=== PATIENT | male | born 1970 | race Caucasian/White ===

== ENCOUNTER 2021-07-04 15:22 | Emergency (ER) | payer BC ==
--- NOTE | 2021-07-04 16:21 | EDM.PDOC ---
ED HPI GENERAL MEDICAL PROBLEM - General Chief Complaint: Respiratory Problem Stated Complaint: COVID SX SENT BY CLINIC Time Seen by Provider: 07/04/21 15:58 Source of Information: Reports: Patient, Old Records (Records from [facility] visit today with Antonia Maynard), RN Notes Reviewed History Limitations: Reports: No Limitations - History of Present Illness INITIAL COMMENTS - FREE TEXT/NARRATIVE: Patient is a 51-year-old male who presents to the ER for evaluation of [id number] symptoms. He was evaluated in the walk-in clinic by Antonia Maynard earlier today, he had some labs taken, CBC was unremarkable, CMP is unremarkable, D-dimer was slightly elevated at 0.97 and his rapid Covid screen was negative at the clinic. Chest x-ray also demonstrated no sign of Covid pneumonia. He is not hypoxic. The patient states that for the last week or so, he has had fatigue, body aches, and just generally not feeling well. He has not been around anyone that is been known to be sick. He has not had COVID-19 in the past, nor did he get the vaccination. Patient states that roughly 3 weeks ago, he had a pretty extensive injury to his leg, where it bruised quite a bit after striking it on the 4 helm. This has since resolved. Antonia Maynard was concerned about a false negative test for COVID-19 so she sent him here for retesting and a CTA to evaluate for PE. Patient's not had any worsening fever, or worsening symptoms. States that he just does not feel great. He was also tested for Lyme disease and West Nile disease through the [facility], these tests are still pending. Middle Chest Pain Score (Numeric/FACES): 1 - Related Data Allergies Allergy/AdvReac Type Severity Reaction Status Date / Time Penicillins Allergy Severe Rash Verified 07/04/21 16:01 Home Meds: Home Meds . [No Known Home Meds] 07/04/21 [History] Past Medical History - Past Health History Medical/Surgical History: Denies Medical/Surgical History - Infectious Disease History Infectious Disease History: Reports: Chicken Pox, Measles, Mumps ED ROS GENERAL - Review of Systems Review Of Systems: Comprehensive ROS is negative, except as noted in HPI. ED EXAM, GENERAL - Physical Exam Exam: See Below Exam Limited By: No Limitations General Appearance: Alert, WD/WN, No Apparent Distress Respiratory/Chest: No Respiratory Distress, Lungs Clear, Normal Breath Sounds, No Accessory Muscle Use, Chest Non-Tender Cardiovascular: Normal Peripheral Pulses, Regular Rate, Rhythm, No Edema Peripheral Pulses: 2+: Radial (L), Radial (R) Extremities: Normal Inspection, Normal Capillary Refill Neurological: Alert, Oriented, Normal Cognition, No Motor/Sensory Deficits Psychiatric: Normal Affect, Normal Mood Skin Exam: Warm, Dry, Intact, Normal Color, No Rash Course - Vital Signs Last Recorded V/S: Last Vital Signs Temp 96.4 F L 07/04/21 15:55 Pulse 64 07/04/21 15:55 Resp 20 07/04/21 15:55 BP 121/86 07/04/21 15:55 Pulse Ox 98 07/04/21 15:55 - Orders/Labs/Meds Orders: Active Orders 24 hr Category Date Time Status Peripheral IV Care [RC] . DIRECTED Care 07/04/21 16:14 Ordered Ang Chest [CT] Stat Exams 07/04/21 15:59 Ordered Sodium Chloride 0.9% [Normal Saline] 100 ml Med 07/04/21 17:45 Active IV ASDIRECTED Sodium Chloride 0.9% [Saline Flush] Med 07/04/21 16:14 Ordered 10 ml FLUSH ASDIRECTED PRN Peripheral IV Insertion Adult [OM.PC] Routine Oth 07/04/21 16:14 Ordered Medication Orders Sodium Chloride (Normal Saline) 100 mls @ 60 mls/hr IV ASDIRECTED MILE Last Admin: 07/04/21 17:43 Dose: 60 mls/hr Documented by: Sodium Chloride (Sodium Chloride 0.9% 10 Ml Syringe) 10 ml FLUSH ASDIRECTED PRN PRN Reason: Keep Vein Open Last Admin: 07/04/21 17:14 Dose: 10 ml Documented by: [facility] Labs: Laboratory Tests 07/04/21 Range/Units 16:22 Influenza Type A RNA Negative (NEGATIVE) Influenza Type B RNA Negative (NEGATIVE) SARS-CoV-2 RNA (SAUD) Negative (NEGATIVE) Meds: Medications Generic Name Dose Route Start Last Admin Trade Name Freq PRN Reason Stop Dose Admin Sodium Chloride 100 mls @ 60 mls/hr 07/04/21 17:45 07/04/21 17:43 Normal Saline IV 60 mls/hr ASDIRECTED MILE Administration Sodium Chloride 10 ml 07/04/21 16:14 07/04/21 17:42 Sodium Chloride 0.9% 10 Ml Syringe FLUSH 10 ml ASDIRECTED PRN Administration Keep Vein Open Discontinued Medications Generic Name Dose Route Start Last Admin Trade Name Andrew PRN Reason Stop Dose Admin Iopamidol 100 ml 07/04/21 17:39 07/04/21 17:42 Iopamidol 755 Mg/Ml 100 Ml Bottle IVPUSH 07/04/21 17:40 100 ml ONETIME ONE Administration Sodium Chloride 10 ml 07/04/21 17:39 07/04/21 17:53 Sodium Chloride 0.9% 10 Ml Sdv FLUSH 07/04/21 17:40 10 ml ONETIME ONE Administration - Re-Assessments/Exams Free Text/Narrative Re-Assessment/Exam: 07/04/21 16:19 Patient presents to the ER for the evaluation of his [id number] symptoms. Review of his laboratory evaluation through [facility] demonstrates no focal abnormalities, chest x-ray was also read as no acute focal abnormalities. His D-dimer was a little elevated at 0.97, so a CTA will be performed at today's visit, we will also repeat a COVID-19 screen for ongoing management. 07/04/21 17:15 The patient's repeat Covid screen was negative for today's visit. CTA is still pending at this time. 07/04/21 18:09 CT demonstrates no sign of an acute pulmonary embolus at today's visit. We will go ahead and discharge patient home with general recommendations, likely he is suffering from a viral respiratory illness that should get better in time. Departure - Departure Time of Disposition: 18:10 Disposition: Home, Self-Care 01 Condition: Good Clinical Impression: Viral upper respiratory illness, Elevated d-dimer - Discharge Information *PRESCRIPTION DRUG MONITORING PROGRAM REVIEWED*: No *COPY OF PRESCRIPTION DRUG MONITORING REPORT IN PATIENT LEEANNE: No Instructions: Viral Respiratory Infection, [id number] Referrals: Antonia Maynard NP [Primary Care Provider] - Forms: ED Department Discharge Additional Instructions: You have been evaluated in the ED today for your cold like symptoms. This is likely a viral illness in etiology. Your chest x-ray done at the [place] walk-in clinic showed no sign of pneumonia or other worrisome symptoms. Work-up in the ER today consisted of a repeat Covid swab, and a CT of your chest to rule out pulmonary embolism, and everything was negative or unremarkable. The D-dimer test can be elevated if you have some rather large bruising at times, or if it is resolving. This is a very nonspecific test for any sort of clotting breakdown in the blood. It is likely that the D-dimer was elevated due to the leg trauma you had a few weeks ago. Please increase your fluid intake. Get plenty of rest as well. You should feel better in a few days. As with any illness, please try to limit your exposure to others to help mitigate the spread of germs. Please also remember to wash your hands after you cough/sneeze. Please try to limit touching your face, and then touching other surfaces. Recommend that you take some [id number] nasal decongestants, cough/cold remedies to combat this. You may take 500mg Tylenol (acetaminophen) or 600mg Advil/Motrin (ibuprofen) every 6 hours as needed for further pain/fever relief. Do not exceed 4000 mg Tylenol or 3200 mg ibuprofen in a 24-hour time span. If you have high blood pressure, medications like Coricidin would be adequate to use. If your symptoms are not better in one week's time recommend that you follow up in a clinic or your primary care provider. Our [facility] clinic number is [phone], the [place] clinic is [phone]. Any family practice provider would be able to provide you with the services. Please return to the ED if your symptoms change or worsen. Sepsis Event Note (ED) - Focused Exam Vital Signs: Vital Signs Temp Pulse Resp BP Pulse Ox 07/04/21 15:55 96.4 F L 64 20 121/86 98 - My Orders Last 24 Hours: My Active Orders 07/04/21 15:59 Ang Chest [CT] Stat 07/04/21 16:14 Peripheral IV Care [RC] . DIRECTED Sodium Chloride 0.9% [Saline Flush] 10 ml FLUSH ASDIRECTED PRN Peripheral IV Insertion Adult [OM.PC] Routine 07/04/21 17:45 Sodium Chloride 0.9% [Normal Saline] 100 ml IV ASDIRECTED - Assessment/Plan Last 24 Hours: My Active Orders 07/04/21 15:59 Ang Chest [CT] Stat 07/04/21 16:14 Peripheral IV Care [RC] . DIRECTED Sodium Chloride 0.9% [Saline Flush] 10 ml FLUSH ASDIRECTED PRN Peripheral IV Insertion Adult [OM.PC] Routine 07/04/21 17:45 Sodium Chloride 0.9% [Normal Saline] 100 ml IV ASDIRECTED
[2021-07-04 17:06] LABS: CORONAVIRUS COVID-19 NAA NEGATIVE (NEGATIVE)
[2021-07-04] MEDS: Sodium Chloride 0.9% 10 ML Syringe FLUSH PRN ×2 (17:14→17:42)
[2021-07-04] MEDS ORDERED: Sodium Chloride 0.9% 10 ML SDV FLUSH ONE (17:39)
[2021-07-04] MEDS ORDERED: Iopamidol 755 Mg/ML 100 ML Bottle IVPUSH ONE (17:39)
[2021-07-04] MEDS ORDERED: Sodium Chloride 0.9% 100 ML IV SCH (17:45)
--- NOTE | 2021-07-05 09:28 | CT ---
CT chest Technique: Multiple axial sections through the chest were obtained. Intravenous contrast was utilized. Study has been performed as a pulmonary angiogram protocol. Comparison: No prior chest imaging is available. Findings: Pulmonary arteries are well opacified. No filling defects are seen to indicate pulmonary embolism. Thoracic aorta shows no aneurysm. Small lymph nodes are seen within the mediastinum which are felt to be within normal limits. No axillary adenopathy is seen. No pericardial thickening is seen. Visualized upper abdominal structures show nothing acute. Minimal thickening is seen within several bronchioles within the right middle lobe raising the possibility of minimal bronchitis. Lungs otherwise are clear. No pneumonia is seen. Bone window settings were reviewed. Mild degenerative change is seen within the lower thoracic spine. No acute osseous abnormality is appreciated. Impression: 1. No findings of pulmonary embolism. 2. Minimal thickening within several bronchioles within the right middle lobe. This could be chronic or represent mild bronchitis. Please correlate with the patient's symptoms. 3. Degenerative change within the lower thoracic spine. Nothing acute is otherwise seen on CT study of the chest. Diagnostic code #3 I agree with preliminary report from [facility], finalized on 07/04/21, 7:03 PM CDT
== END 2021-07-04 18:30 | disposition home or self-care (01) ==
LOC: SUPCPDRO 15:22 → JD.ED 15:22
DX: J06.9 Acute upper respiratory infection, unspecified (principal); R79.1 Abnormal coagulation profile; Z88.0 Allergy status to penicillin; Z20.822 Contact with and (suspected) exposure to COVID-19
CPT/HCPCS: 0240U; 71275; 99284; Q9967

== ENCOUNTER 2024-03-30 17:53 | Emergency (ER) | payer BC, OTHER ==
[2024-03-30] MEDS: Sodium Chloride 0.9% 1,000 ML IV SCH (19:22)
[2024-03-30 19:33] LABS: BASOPHILS ABSOLUTE AUTO 0.1 K/mm3 (0.0-0.2); BASOPHILS PERCENT AUTO 0.6 % (0.0-1.0); EOSINOPHILS ABSOLUTE AUTO 0.4 K/mm3 (0.0-0.4); EOSINOPHILS PERCENT AUTO 4.4 % (0.0-6.0); HEMATOCRIT 40.6 % (42.0-52.0); HEMOGLOBIN 13.7 gm/dl (14.0-18.0); IMMATURE GRAN ABSOLUTE AUTO 0.01 K/mm3 (0.00-0.05); IMMATURE GRAN PERCENT AUTO 0.1 % (0.0-0.4); LYMPHOCYTES ABSOLUTE AUTO 3.1 K/mm3 (1.0-4.8); LYMPHOCYTES PERCENT AUTO 39.3 % (24.0-44.0); MEAN CORPUSCULAR HEMOGLOBIN 30.2 pg (28.0-32.0); MEAN CORPUSCULAR HGB CONC 33.7 g/dl (32.0-36.0); MEAN CORPUSCULAR VOLUME 89.6 fl (83.0-99.0); MEAN PLATELET VOLUME 11.4 fl (9.4-12.4); MONOCYTES ABSOLUTE AUTO 0.6 K/mm3 (0.0-0.8); MONOCYTES PERCENT AUTO 7.7 % (0.0-8.0); NEUTROPHILS ABSOLUTE AUTO 3.8 K/mm3 (1.8-7.7); NEUTROPHILS PERCENT AUTO 47.9 % (41.0-71.0); PLATELET COUNT,PLT 159 K/mm3 (150-400); RED BLOOD CELL COUNT 4.53 M/mm3 (4.52-5.90); WHITE BLOOD CELL COUNT,WBC 7.89 K/mm3 (3.9-11.3)
[2024-03-30 19:56] LABS: A/G RATIO 1.3 (1-2); ALBUMIN 3.7 g/dl (3.4-5.0); BILIRUBIN TOTAL 0.2 mg/dL (0.2-1.0); CALCIUM 8.4 mg/dL (8.5-10.1); CREATININE 1.1 mg/dL (0.7-1.3); EST CRCL DRUG DOSING (CG) 82.03 mL/min; PROTEIN TOTAL,TP 6.6 g/dl (6.4-8.2)
[2024-03-30 20:08] LABS: CORONAVIRUS COVID-19 NAA NEGATIVE (NEGATIVE); INFLUENZA A NAA NEGATIVE (NEGATIVE); RESPIRATORY SYNCYTIAL VIR NAA NEGATIVE (NEGATIVE)
== END 2024-03-30 20:35 | disposition home or self-care (01) ==
LOC: JD.ED 17:53
DX: R42 Dizziness and giddiness (principal); M79.10 Myalgia, unspecified site; F17.210 Nicotine dependence, cigarettes, uncomplicated; Z88.0 Allergy status to penicillin; Z88.8 Allergy status to other drugs, medicaments and biological substances
CPT/HCPCS: 0241U; 36415; 71045; 80053; 85025; 93005; 96360; 99285; J7030; 93010; 99282